=== PATIENT | female | born 1950 | race Caucasian/White ===

== ENCOUNTER 2016-09-05 11:54 | Emergency (ER) | payer MEDICARE ==
[~2016-09-05] VITALS: Ht 149.9 cm; Wt 55.5 kg
[~2016-09-05 11:54] MED LIST: IBUP400T22 PO; MECL25TA2 PO
[2016-09-05 11:58] VITALS: Ht 149.9 cm; Wt 55.5 kg
--- NOTE | 2016-09-05 16:44 | RADRPT ---
PROCEDURE: CT Brain without contrast. CLINICAL INDICATION: seeing flashes of light, occipital headache TECHNIQUE: A CT of the brain was performed utilizing axial imaging from the skull base through the vertex without IV contrast. Multiplanar reformatted images were made. Images were reviewed on a [employer] workstation. The CTDIvol is 43 mGy and the DLP is 86 130 mGycm. COMPARISON: MRI brain October 31, 2015 FINDINGS: There is no intracranial hemorrhage, mass effect, or midline shift. No extra-axial fluid collection is seen. The ventricles and sulci are normal in size and configuration. The density of the brain is normal, and the isbell white matter differentiation appears well-preserved. The visualized paranasal sinuses and osseous structures are grossly unremarkable. IMPRESSION: 1. No evidence of acute intracranial pathology. 2. The brain is normal in appearance. .Brian Go MD, Date Time Electronically viewed and signed by .Brian Go MD, on 09/05/2016 16:44 .A/
--- NOTE | 2016-09-05 16:54 | RADRPT ---
PROCEDURE: Ophthalmic ultrasound CLINICAL INDICATION: eye pain, evaluate for left-sided right sided retinal detachment TECHNIQUE: Young scale images of the bilateral eyes were obtained. COMPARISON: MRI of the brain 10/31/2015. FINDINGS: Morphology appears normal. The anterior and posterior chambers have normal anechoic appearance. There is no evidence of retinal detachment. IMPRESSION: Symmetric normal sonographic appearance of both eyes. Recommend correlation with ophthalmologic examination. RPTAT: AA .Gerald Trevizo MD, MD Date Time Electronically viewed and signed by .Gerald Trevizo MD, MD on 09/05/2016 16:53 .B/
--- NOTE | 2016-09-05 17:27 | ERD ---
ER Documentation Chief Complaint Date/Time DATE: 09/05/16 TIME: 17:20 Chief Complaint LEFT EYE PROBLEM AND NUMBNESS ON BOTH HANDS; LEFT EAR PAIN AND HEAD PAIN HPI This is a 66-year-old female who presents to the emergency department for left eye photopsias. patient states yesterday she developed bright flashes of light in her left eye. Patient states she had the same symptoms 15 days ago. Patient also reports head pain to occipital area of head. Patient describes pain as mild. Denies symptoms at this time. Patient states symptoms of bright flashes of light and headache resolved spontaneously. No headache at this time. No blurry vision. Patient normally wears glasses. Does not have her glasses today. No difficulty talking or ambulating. No change in mood or behavior. Does not describe this as the worst headache she is ever had. Denies dizziness or syncopal episode. No trauma to head or eye. Denies photophobia. ROS All systems reviewed and are negative except as per history of present illness. Medications Home Meds Active Scripts Ibuprofen* (Ibuprofen*) 400 Mg Tablet, 400 MG PO Q6H Y for PAIN for 3 Days, TAB Prov:ERNA CARCAMO 03/23/16 Meclizine Hcl* (Antivert*) 25 Mg Tablet, 25 MG PO Q6H Y for vertigo, #30 TAB Prov:PHILL CARRIZALES MD 10/31/15 Allergies Allergies: Coded Allergies: aspirin (Verified Allergy, Unknown, GI upset, 10/31/15) acetaminophen (Verified Adverse Reaction, Mild, N/V, 10/31/15) caffeine (Verified Adverse Reaction, Mild, N/V, 10/31/15) PMhx/Soc History of Surgery: Yes () Anesthesia Reaction: No Hx Neurological Disorder: Yes (VERTIGO) Hx Respiratory Disorders: No Hx Cardiac Disorders: Yes (HTN) Hx Psychiatric Problems: No Hx Miscellaneous Medical Probl: Yes (HIGH CHOLESTEROL) Hx Alcohol Use: No Hx Substance Use: No Hx Tobacco Use: No Smoking Status: Unknown if ever smoked Physical Exam Vitals Vital Signs Date Time Temp Pulse Resp B/P Pulse Ox O2 Delivery O2 Flow Rate FiO2 09/05/16 17:58 98.2 66 18 154/72 98 Room Air 09/05/16 11:58 98.2 75 19 160/76 98 Physical Exam Const: Alert, no acute distress Head: Atraumatic Eyes: Normal Conjunctiva. PERRL ENT: Normal External Ears, Nose and Mouth. Neck: Full range of motion..~ No meningismus. Resp: Clear to auscultation bilaterally Cardio: Regular rate and rhythm, no murmurs Abd: Soft, non tender, non distended. Normal bowel sounds Skin: No petechiae or rashes Back: No midline or flank tenderness Ext: No cyanosis, or edema Neur: Awake and alert Psych: Normal Mood and Affect Procedures/MDM ED COURSE: The patient was stable throughout ED course. I kept the patient and/or family informed of laboratory and diagnostic imaging results throughout the ED course. Visual acuity Left 20/100 Right 20/100 Bilateral 20/100 Imaging Ultrasound orbits Patient: MANUEL CHOWDHURY : 1950 Age: 66 Sex: F MR #: [id number] DOS: 09/05/16 1519 Ordering MD: ADALBERTO WATERMAN NP Location: [facility] Room/Bed: PROCEDURE: Ophthalmic ultrasound CLINICAL INDICATION: eye pain, evaluate for left-sided right sided retinal detachment TECHNIQUE: Young scale images of the bilateral eyes were obtained. COMPARISON: MRI of the brain 10/31/2015. FINDINGS: Morphology appears normal. The anterior and posterior chambers have normal anechoic appearance. There is no evidence of retinal detachment. IMPRESSION: Symmetric normal sonographic appearance of both eyes. Recommend correlation with ophthalmologic examination. CT head Patient: MANUEL CHOWDHURY : 1950 Age: 66 Sex: F MR #: [id number] DOS: 09/05/16 1519 Ordering MD: ADALBERTO WATERMAN NP Location: [facility] Room/Bed: PROCEDURE: CT Brain without contrast. CLINICAL INDICATION: seeing flashes of light, occipital headache TECHNIQUE: A CT of the brain was performed utilizing axial imaging from the skull base through the vertex without IV contrast. Multiplanar reformatted images were made. Images were reviewed on a P[employer] workstation. The CTDIvol is 43 mGy and the DLP is 86 130 mGycm. COMPARISON: MRI brain October 31, 2015 FINDINGS: There is no intracranial hemorrhage, mass effect, or midline shift. No extra- axial fluid collection is seen. The ventricles and sulci are normal in size and configuration. The density of the brain is normal, and the young white matter differentiation appears well-preserved. The visualized paranasal sinuses and osseous structures are grossly unremarkable. IMPRESSION: 1. No evidence of acute intracranial pathology. 2. The brain is normal in appearance. MDM: 58-year-old female presents emergency department for left eye photopsias and occipital headache yesterday. No symptoms today. Denies blurry vision or loss of vision. Denies photopsias. Patient had same symptoms 15 days ago. 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 Visual acuity 20/102 right eye, left eye and bilateral eyes. Patient normally wears glasses however does not have glasses today. Denies any visual changes. US orbits reviewed by radiologist shows symmetric normal sonographic appearance of both eyes. Recommend correlation with ophthalmologic examination. CT brain reviewed by radiologist as no evidence of acute intracranial pathology. The brain is normal in appearance. Patient is completely asymptomatic today. Discussed findings with Dr. Santiago, and we agreed that patient is appropriate for outpatient management and needs close follow-up with neurology and ophthalmology. Low suspicion for posterior vitreous detachment or occipital lobe infarction. Patient's diagnosis is photopsia of left eye. Patient is appropriate for outpatient management. Instructed patient to follow- up with neurology and ophthalmology as soon as possible in the next 24-48 hours. Return to ED for any high fever, chest pain, difficulty breathing, shortness breath, wheezing, vomiting, diarrhea, abdominal pain or any new or worsening symptoms. Patient verbalizes understanding. All questions answered at discharge. Departure Diagnosis: Primary Impression: Photopsia of left eye Condition: Stable ADALBERTO WATERMAN NP Sep 05, 2016 17:27
[2016-09-05 17:58] VITALS: BP 154/72; PULSE 66; RESP 18; TEMP 98.2
== END 2016-09-05 17:59 | disposition home or self-care (01) ==
LOC: FTE 11:54
DX: H53.19 Other subjective visual disturbances (principal); I10 Essential (primary) hypertension
CPT/HCPCS: 70450; 76999